=== PATIENT | male | born 1960 | race Caucasian/White ===

== ENCOUNTER 2016-08-11 20:51 | Emergency (ER) | payer BC, OTHER ==
--- NOTE | 2016-08-11 21:27 | EDM.PDOC ---
ED HPI GENERAL MEDICAL PROBLEM - General Chief Complaint: Lower Extremity Injury/Pain Stated Complaint: left ankle hurts Time Seen by Provider: 08/11/16 21:17 Source of Information: Reports: Patient History Limitations: Reports: No Limitations - History of Present Illness INITIAL COMMENTS - FREE TEXT/NARRATIVE: Patient stepped off his water trailer and turned his ankle. He denies hearing or feeling a snap, pop, crack, or tear. He did take a 5/325 norco and used ice before coming in. Denies any prior injury. Onset: Today Onset Date: 08/11/16 Onset Time: 19:00 Location: Reports: Lower Extremity, Left Severity: Moderate Improves with: Reports: Cold Therapy, Medication Worsens with: Reports: Movement Associated Symptoms: Reports: No Other Symptoms Treatments E[employer]IL[employer]OCIATE: Reports: Cold Therapy - Related Data Allergies Allergy/AdvReac Type Severity Reaction Status Date / Time No Known Allergies Allergy Verified 04/25/14 10:15 Home Meds: Home Meds Lisinopril/Hydrochlorothiazide [Zestoretic 10-12.5 MG] 1 tab PO DAILY 04/25/14 [ History] Review of Systems - Review of Systems Review Of Systems: See Below Constitutional: Reports: No Symptoms Eyes: Reports: No Symptoms Ears: Reports: No Symptoms Nose: Reports: No Symptoms Mouth/Throat: Reports: No Symptoms Respiratory: Reports: No Symptoms Cardiovascular: Reports: No Symptoms GI/Abdominal: Reports: No Symptoms Genitourinary: Reports: No Symptoms Musculoskeletal: Reports: Foot Pain, Muscle Stiffness, Other (left ankle pain) Neurological: Reports: No Symptoms Psychiatric: Reports: No Symptoms ED EXAM, GENERAL - Physical Exam Exam: See Below Exam Limited By: No Limitations General Appearance: Alert, WD/WN, No Apparent Distress Extremities: Pedal Edema, Joint Swelling, Limited Range of Motion. No: Normal Range of Motion Neurological: Alert, Oriented, CN II-XII Intact, Normal Cognition, Normal Gait, Normal Reflexes, No Motor/Sensory Deficits Psychiatric: Normal Affect, Normal Mood Skin Exam: Warm, Dry, Intact Lymphatic: No Adenopathy Course - Orders/Labs/Meds Orders: Active Orders 24 hr Category Date Time Status Ankle Min 3V Lt [CR] Stat Exams 08/11/16 21:22 Taken Departure - Departure Time of Disposition: 22:53 Disposition: Home, Self-Care 01 Condition: Good Clinical Impression: Left ankle sprain - Discharge Information Instructions: Ankle Sprain, [id number] Additional Instructions: You do not have any fracture, you have an ankle sprain Use ice, elevation, compression, ibuprofen and tylenol You should elevate it for the next 1-2 days Follow up with your primary doctor with any symptom management Please call with any questions or concerns. - Problem List & Annotations (1) Left ankle sprain SNOMED Code(s): 37424237 Code(s): S93.402A - SPRAIN OF UNSPECIFIED LIGAMENT OF LEFT ANKLE, INIT ENCNTR Status: Acute Priority: Low Current Visit: Yes Qualifiers: Encounter type: initial encounter - Problem List Review Problem List Initiated/Reviewed/Updated: Yes - My Orders Last 24 Hours: My Active Orders 08/11/16 21:22 Ankle Min 3V Lt [CR] Stat - Assessment/Plan Last 24 Hours: My Active Orders 08/11/16 21:22 Ankle Min 3V Lt [CR] Stat Assessment:: left ankle sprain Plan: You do not have any fracture, you have an ankle sprain Use ice, elevation, compression, ibuprofen and tylenol You should elevate it for the next 1-2 days Follow up with your primary doctor with any symptom management Please call with any questions or concerns.
[2016-08-11] MEDS ORDERED: Take Home: Acetaminophen/HYDROcodone 325-10 MG, 5 Tab Pack PO ONE (22:49)
[2016-08-12 04:03] VITALS: BP 152/62
== END 2016-08-11 23:01 | disposition home or self-care (01) ==
LOC: VM.ED 20:51
DX: S93.402A Sprain of unspecified ligament of left ankle, initial encounter (principal); Z79.899 Other long term (current) drug therapy; W22.8XXA Striking against or struck by other objects, initial encounter
CPT/HCPCS: 73610; 99283; A9270